=== PATIENT | male | born 1995 | race Caucasian/White ===

== ENCOUNTER 2021-07-15 17:58 | Emergency (ER) | payer SELFPAY ==
[~2021-07-15] VITALS: Ht 182.9 cm; Wt 75.0 kg
[2021-07-15 21:15] VITALS: BP 120/86
== END 2021-07-15 21:19 | disposition home or self-care (01) ==
LOC: ER 17:59
DX: Z13.89 Encounter for screening for other disorder (principal); R44.0 Auditory hallucinations
CPT/HCPCS: 99281

== ENCOUNTER 2021-07-26 18:06 | Emergency (ER) | payer SELFPAY ==
[~2021-07-26] VITALS: Ht 182.9 cm; Wt 77.3 kg
[2021-07-26 18:08] VITALS: BP 131/83
== END 2021-07-27 01:28 | disposition left against medical advice (07) ==
LOC: ER 18:07
DX: R07.9 Chest pain, unspecified (principal); Z53.21 Procedure and treatment not carried out due to patient leaving prior to being seen by health care provider
CPT/HCPCS: 93005